=== PATIENT | female | born 1975 ===

== ENCOUNTER 2019-10-29 16:10 | Emergency (ER) | payer OTHER ==
[2019-10-29] MEDS ORDERED: predniSONE 20 MG TAB ONE (18:57)
[2019-10-30 17:59] LABS: SARS-CoV-2 MS2 Positive; SARS-CoV-2 N Gene Positive; SARS-CoV-2 S Gene Positive; SARS-CoV-2 orf1ab Positive
--- NOTE | 2019-10-31 07:42 | RAD ---
CHEST 1 VIEW: INDICATION: Cough with sore throat. COMPARISON: None. FINDINGS: Lungs are clear. Heart size is normal. No acute osseous abnormality is evident. IMPRESSION: No acute cardiopulmonary abnormality. POS: [facility]
== END 2019-10-29 19:05 | disposition home or self-care (01) ==
LOC: MADERS 16:10
DX: U07.1 COVID-19 (principal); R05 Cough; R51 Headache; J02.9 Acute pharyngitis, unspecified; E11.9 Type 2 diabetes mellitus without complications
CPT/HCPCS: 71045; 87081; 87430; 87635; 87804; J7512; U0003

== ENCOUNTER 2019-10-30 20:40 | Emergency (ER) | payer OTHER | END 2019-10-30 21:25 | disposition home or self-care (01) | LOC: MADERS 20:40 | DX: Z03.818 Encounter for observation for suspected exposure to other biological agents ruled out (principal) | CPT/HCPCS: 99281 ==

== ENCOUNTER 2020-05-01 20:12 | Emergency (ER) | payer OTHER ==
[2020-05-01] MEDS ORDERED: predniSONE 20 MG TAB ONE (21:04)
[2020-05-02 22:08] LABS: SARS-CoV-2 MS2 Positive; SARS-CoV-2 N Gene Negative; SARS-CoV-2 S Gene Negative; SARS-CoV-2 by NAA Not Detected (NotDetected); SARS-CoV-2 orf1ab Negative
== END 2020-05-01 21:20 | disposition home or self-care (01) ==
LOC: MADERS 20:12
DX: J01.90 Acute sinusitis, unspecified (principal); Z20.828 Contact with and (suspected) exposure to other viral communicable diseases
CPT/HCPCS: 87635; 99283; J7512; U0003

== ENCOUNTER 2020-05-07 19:09 | Emergency (ER) | payer OTHER | END 2020-05-07 20:01 | disposition home or self-care (01) | LOC: MADERS 19:09 | DX: J06.9 Acute upper respiratory infection, unspecified (principal) | CPT/HCPCS: 99283 ==